=== PATIENT | female | born 1955 | race Asian ===

== ENCOUNTER 2022-08-12 08:49 | Outpatient (CLI) | payer MEDICAID, SELFPAY ==
--- NOTE | 2022-08-12 08:59 | MM_ITS ---
WS: [id number] BILATERAL SCREENING DIGITAL TOMOSYNTHESIS MAMMOGRAM WITH CAD HISTORY: SCREENING COMPARISON: None available. Bilateral CC and MLO views with tomosynthesis and synthetic mammography submitted. Computer aided det ection analyzed. Breast composition: There are scattered areas of fibroglandular density. No suspicious masses, microc alcifications or architectural distortion. MM/[place] [id number] IMPRESSION: BI-RADS: 1-Negative FOLLOW UP: 1 Year Follow-up
== END 2022-08-12 08:50 | disposition home or self-care (01) ==
PROVIDERS: PCP Family Medicine; Visit Provider Family Medicine
DX: Z12.31 Encounter for screening mammogram for malignant neoplasm of breast (principal)
CPT/HCPCS: 77063; 77067

== ENCOUNTER 2023-09-16 14:25 | Outpatient (CLI) | payer MEDICAID, SELFPAY ==
--- NOTE | 2023-09-16 14:30 | USCV_ITS ---
Boby Jarrett Age: 68 Gender: F : 1955 Exam Date: 09/16/2023 14:41 Ordering Phys: Vinny Jeffries M.D ([email or web address]) Technologist: Exam [place] [facility] [place]: hx mi murmur BP: 120 / 70 HR: 82 Rhythm: Sinus Technical Quality: Adequate MEASUREMENTS (Male / Female) Normal Values 2D ECHO LV Diastolic Diameter PLAX 4.7 cm 4.2 - 5.9 / 3.9 - 5.3 cm IVS Diastolic Thickness 1.1 cm 0.6 - 1.0 / 0.6 - 0.9 cm IVS Systolic Thickness 1.6 cm LVPW Diastolic Thickness 1.2 cm 0.6 - 1.0 / 0.6 - 0.9 cm LVPW Systolic Thickness 1.2 cm LV Ejection Fraction 2D Teich 51.7 % LV Ejection Fraction MOD 4C 61.4 % LV Ejection Fraction MOD 2C 54.3 % LV Ejection Fraction 2C AL 54.7 % LA Sys Volume AL 35.6 cm cubed LA Sys Volume Index AL 19.0 cm cubed/m squared IVC Diameter 1.3 cm M-MODE LA Ao Ratio MM 1.1 AV Cusp Separation MM 2.1 cm DOPPLER AV Peak Velocity 91.0 cm/s LVOT Peak Velocity 79.0 cm/s MV Peak Velocity 105.0 cm/s MV Area PHT 3.4 cm squared Mitral E to A Ratio 1.2 TR Peak Velocity 177.0 cm/s TR Peak Gradient 12.5 mmHg TV Peak E Velocity 83.0 cm/s Right Atrial Pressure 3.0 mmHg Pulmonary Artery Systolic Pressu 15.5 mmHg PV Peak Velocity 85.0 cm/s FINDINGS Left Ventricle Left ventricle is normal size. LV systolic function is mildly reduced with EF of 40 to 45%. Moderate hypokinesis of anterior wall with severe hypokinesis/akinesis of apical wall. Right Ventricle Normal in size and function. Right Atrium Normal in size. Left Atrium Normal in size. Mitral Valve Structurally normal mitral valve. Mild mitral regurgitation Aortic Valve Structurally normal aortic valve. No significant stenosis or regurgitation Tricuspid Valve Mild tricuspid regurgitation. Pulmonary artery systolic pressure is normal Pulmonic Valve Not well visualized Pericardium Normal Aorta Normal in size IVC Appears to be normal CONCLUSIONS LV systolic function is mildly reduced with EF of 40-45%. Above mentioned regional wall motion abnormalities. Mild mitral regurgitation Mild tricuspid regurgitation No comparison studies are available. Vinny Jeffries MD (Electronically Signed) Final Date: 24 September 2023 18:11 S
== END 2023-09-16 14:26 | disposition home or self-care (01) ==
LOC: RAD 14:26
PROVIDERS: PCP Family Medicine; Visit Provider Internal Medicine
DX: R06.02 Shortness of breath (principal); I08.1 Rheumatic disorders of both mitral and tricuspid valves
CPT/HCPCS: 93306

== ENCOUNTER → 2023-11-25 12:26 | Outpatient (BNVA) | payer MEDICAID, SELFPAY | PROVIDERS: PCP Family Medicine; Visit Provider Internal Medicine | DX: I25.10 Atherosclerotic heart disease of native coronary artery without angina pectoris (principal); E03.9 Hypothyroidism, unspecified; E11.9 Type 2 diabetes mellitus without complications; E78.5 Hyperlipidemia, unspecified; Z79.84 Long term (current) use of oral hypoglycemic drugs | CPT/HCPCS: 99214 ==

== ENCOUNTER → 2024-07-14 08:25 | Outpatient (BNVA) | payer MEDICAID, SELFPAY | PROVIDERS: PCP Family Medicine; Visit Provider Podiatrist Foot & Ankle Surgery | DX: E11.69 Type 2 diabetes mellitus with other specified complication (principal); I73.9 Peripheral vascular disease, unspecified; Z79.4 Long term (current) use of insulin | CPT/HCPCS: 99214 ==

== ENCOUNTER → 2024-07-27 15:39 | Outpatient (BNVA) | payer MEDICAID, SELFPAY | PROVIDERS: PCP Family Medicine; Visit Provider Internal Medicine | DX: I25.10 Atherosclerotic heart disease of native coronary artery without angina pectoris (principal); E11.9 Type 2 diabetes mellitus without complications; Z79.84 Long term (current) use of oral hypoglycemic drugs; E78.5 Hyperlipidemia, unspecified; E03.9 Hypothyroidism, unspecified; Z79.02 Long term (current) use of antithrombotics/antiplatelets; Z79.82 Long term (current) use of aspirin; R07.9 Chest pain, unspecified | CPT/HCPCS: 99214 ==

== ENCOUNTER 2024-08-26 07:27 | Outpatient (CLI) | payer MEDICAID, SELFPAY ==
[2024-08-26 07:42] VITALS: BMI 26.6
--- NOTE | 2024-08-26 07:45 | NMCV_ITS ---
NM mona perf SPECT r/s* [id number] Boby Jarrett Age: 69 Gender: F : 1955 Exam Date: 08/26/2024 08:28 Ordering Phys: Vinny Jeffries M.D ([email or web address]) Technologist: BLANKA Carcamo Exam Location: [facility] Indications: cp STRESS TEST Please see separate stress test report in [facility] for full findings IMAGE PROTOCOL Rest/Stress 1 Lexiscan Day Radiopharmaceutical Dose (mCi) Administration Site Administered by Rest: Tc-99m 10.4 IV Alexandra Steven INSULATION CUPOL[employer] OPERATOR Sestamibi Stress:Tc-99m 32.9 IV Alexandra Fernándezgle, INSULATION CUPOLA OPERATOR Sestamibi Rest: 26-Aug-2024 60 Discovery 630 Stress: 26-Aug-2024 30 Discovery 630 0.4mg Lexiscan. Images obtained in supine and prone position. SPECT RESULTS Technical Quality: Good Raw Data Analysis: Normal Image Corrections: No attenuation or motion correction applied Summed Stress Score: 25 Summed Rest Score: 25 Summed Difference Score: 1 PERFUSION FINDINGS Moderate to large area of moderate to severely decreased tracer uptake involving the mid inferoseptal, mid anteroseptal, mid and apical anterior, apical lateral, apical inferior, apical septal and LV apex. Slight reversibility was noted in the apical lateral segment. FUNCTIONAL RESULTS (calculated via Gated SPECT) Stress Image LV EF (%): 51 Stress EDV (mL):105 TID: 1.02 Stress ESV (mL):51 FUNCTIONAL FINDINGS: Segmental wall motion analysis revealing mild diffuse hypokinesis of the LV apex. IMPRESSIONS 1. Myocardial perfusion imaging revealing moderate to large area of persistent decreased tracer uptake involving the mid and apical anterior, apical inferior, mid inferoseptal, mid anteroseptal, mid anterior wall and all the apical segments including the apex. There is a subtle area of reversibility in the apical lateral segment. 2. The LV ejection fraction was deemed to be 51%. 3. LV wall motion analysis findings as mentioned above 4. Mildly dilated LV cavity with an end-systolic volume of 51 mL No similar previous studies are available for comparison Dr Aruna Moe MD [facility] (Electronically Signed) Final Date: 26 August 2024 16:22 S
--- NOTE | 2024-08-26 07:45 | ECG_ITS ---
Connect Controls Test Date: 2024-08-26 Pat Name: Boby Jarrett Department: Room: Gender: Female Vocational Guidance Counselor: : 1955 Requested By: Vinny Jeffires Order Number: [id number] Rey MD: Aruna Moe M.D. Interpretive Statements Lung unchanged pre/post procedure; Intraprocedure shortess of breath; Symptoms resoled by discharge PROCEDURE: At the baseline, the EKG revealed normal sinus rhythm with the features of old anteroseptal NM. Nonspecific T wave changes.. The baseline heart was 74 bpm with a blood pressue of 105/60 mm of Hg Lexiscan was infused over a period of 20 seconds. A total of 0.4 milligrams of Lexiscan was infused. The stress phase was continued for a total of 5 minutes. Heart rate at the end of the stress phase was 87 bpm with a blood pressure 102/52 mm of Hg. The EKG at the peak infusion revealed no significant changes. Sestamibi was injected 20 seconds after the Lexiscan infusion. Heart rate at the end of the recovery phase was 74 bpm with a blood pressure of 101/52 mm of Hg. CONCLUSION: 1. No significant EKG changes with the LexiScan infusion 2. No LexiScan induced chest pain or cardiac arrhythmia 3. Normal blood pressure and heart rate response 4. Sestamibi/sestamibi perfusion scan pending; see separate report. Electronically Signed On 08-29-2024 21:35:34 CDT by Aruna Moe M.D. [email or web address]
[2024-08-26 09:01] VITALS: BP 101/52; PULSE 77
== END 2024-08-26 07:28 | disposition home or self-care (01) ==
LOC: CDL 07:28
PROVIDERS: PCP Family Medicine; Visit Provider Internal Medicine
DX: R07.9 Chest pain, unspecified (principal); R93.1 Abnormal findings on diagnostic imaging of heart and coronary circulation
CPT/HCPCS: 36415; 78452; 93017; 96374; A9500; J2785

== ENCOUNTER 2024-09-01 09:24 | Outpatient (CLI) | payer MEDICAID, SELFPAY ==
--- NOTE | 2024-09-01 09:30 | USR_ITS ---
PROCEDURE INFORMATION: Exam: US Bilateral Noninvasive Physiologic Study of the Lower Extremity Arteries, Limited Exam date and time: 09/01/2024 9:13 AM Age: 69 years old Clinical indication: Pain; Leg, upper; Bilateral; Additional info: Decreased pedal pulses TECHNIQUE: Imaging protocol: Bilateral Limited bilateral noninvasive physiologic studies of lower extremity arteries. Waveforms were obtained and evaluated. Images were documented and archived. Exam is limited. COMPARISON: CR XR foot RT min 3V* [id number] 07/06/2024 2:07 PM FINDINGS: Right Ankle-Brachial Index at at PT: 1.21 Right Ankle-Brachial Index at at DP: 1.04 Right toe- brachial index: 0.99 Left Ankle-Brachial Index at PT: 1.19 Left Ankle-Brachial Index at PT: 1.07 Left toe-brachial index: 1.12 US/CV ankle brachial index [id number] IMPRESSION: Normal ankle-brachial indices with slight reduction in right toe brachial index.
== END 2024-09-01 09:25 | disposition home or self-care (01) ==
LOC: RAD 09:26
PROVIDERS: PCP Family Medicine; Visit Provider Podiatrist Foot & Ankle Surgery
DX: R09.89 Other specified symptoms and signs involving the circulatory and respiratory systems (principal); M79.605 Pain in left leg; M79.604 Pain in right leg
CPT/HCPCS: 93922

== ENCOUNTER → 2024-09-15 14:36 | Outpatient (BNVA) | payer MEDICAID, SELFPAY | PROVIDERS: PCP Family Medicine; Visit Provider Internal Medicine | DX: I25.10 Atherosclerotic heart disease of native coronary artery without angina pectoris (principal); E03.9 Hypothyroidism, unspecified; E11.69 Type 2 diabetes mellitus with other specified complication; E78.5 Hyperlipidemia, unspecified; Z79.84 Long term (current) use of oral hypoglycemic drugs | CPT/HCPCS: 99214 ==

== ENCOUNTER → 2024-10-14 11:13 | Outpatient (BNVA) | payer MEDICAID, SELFPAY | PROVIDERS: PCP Family Medicine; Visit Provider Podiatrist Foot & Ankle Surgery | DX: M79.671 Pain in right foot (principal); E11.69 Type 2 diabetes mellitus with other specified complication; I73.9 Peripheral vascular disease, unspecified; M21.611 Bunion of right foot; M20.41 Other hammer toe(s) (acquired), right foot; L60.3 Nail dystrophy | CPT/HCPCS: 99214 ==

== ENCOUNTER → 2024-12-06 09:25 | Outpatient (BNVA) | payer MEDICAID, SELFPAY | PROVIDERS: PCP Family Medicine; Visit Provider Podiatrist Foot & Ankle Surgery | DX: L60.8 Other nail disorders (principal); E11.69 Type 2 diabetes mellitus with other specified complication; I73.9 Peripheral vascular disease, unspecified; M21.611 Bunion of right foot; M20.41 Other hammer toe(s) (acquired), right foot; L60.3 Nail dystrophy; Z79.84 Long term (current) use of oral hypoglycemic drugs | CPT/HCPCS: 99213 ==

== ENCOUNTER → 2024-12-09 09:12 | Outpatient (BNVA) | payer MEDICAID, SELFPAY | PROVIDERS: PCP Family Medicine; Visit Provider Podiatrist Foot & Ankle Surgery | DX: L60.3 Nail dystrophy (principal); E11.69 Type 2 diabetes mellitus with other specified complication; L60.8 Other nail disorders; Z79.4 Long term (current) use of insulin | CPT/HCPCS: 11750; J9999 ==

== ENCOUNTER → 2025-01-04 14:24 | Outpatient (BNVA) | payer MEDICAID, SELFPAY | PROVIDERS: PCP Family Medicine; Visit Provider Podiatrist Foot & Ankle Surgery | DX: Z98.890 Other specified postprocedural states (principal); M79.674 Pain in right toe(s) | CPT/HCPCS: 99213 ==

== ENCOUNTER → 2025-01-25 14:29 | Outpatient (BNVA) | payer MEDICAID, SELFPAY | PROVIDERS: PCP Family Medicine; Visit Provider Podiatrist Foot & Ankle Surgery | DX: Z98.890 Other specified postprocedural states (principal); M79.674 Pain in right toe(s); E03.9 Hypothyroidism, unspecified; E11.69 Type 2 diabetes mellitus with other specified complication; E78.5 Hyperlipidemia, unspecified; I25.10 Atherosclerotic heart disease of native coronary artery without angina pectoris | CPT/HCPCS: 99213 ==